=== PATIENT | female | born 1990 | race Caucasian/White ===

== ENCOUNTER 2019-09-02 08:37 | Emergency (ER) | payer OTHER ==
[~2019-09-02] VITALS: Ht 170.2 cm; Wt 76.7 kg
[2019-09-02 08:53] VITALS: Ht 170.2 cm; Wt 76.7 kg
[2019-09-02 09:56] LABS: BASOPHIL % 0.1 % (0-2); PLATELET COUNT 225 x10^3mcL (130-400); RED CELL DISTRIBUTION WIDTH 12.6 % (11.5-14.5)
[2019-09-02 10:12] LABS: CALCIUM 8.8 mg/dL (8.5-10.1); CARBON DIOXIDE 25.6 mmol/L (21-32); CHLORIDE SERUM 107 mmol/L (98-107); CREATININE SERUM 0.6 mg/dL (0.6-1.0); GFR1 > 60 mL/min; GLUCOSE SERUM 99 mg/dL (74-106); SODIUM SERUM 141 mmol/L (136-145)
[2019-09-02 10:17] LABS: ALBUMIN 3.9 g/dL (3.4-5.0); ALKALINE PHOSPHATASE 68 U/L (46-116); ALT/SGPT 33 U/L (14-59); AST/SGOT 20 U/L (15-37); BILIRUBIN TOTAL 0.6 mg/dL (0.20-1.00); TOTAL PROTEIN, SERUM 7.8 g/dL (6.4-8.2)
[2019-09-02 11:57] VITALS: BP 111/66
== END 2019-09-02 11:57 | disposition home or self-care (01) ==
LOC: ED 08:37
PROVIDERS: Emergency Medicine
DX: R10.31 Right lower quadrant pain (principal); R11.10 Vomiting, unspecified; R39.15 Urgency of urination; F17.210 Nicotine dependence, cigarettes, uncomplicated
CPT/HCPCS: J1885; J2405; J7030; Q9967

== ENCOUNTER 2020-01-29 19:02 | Emergency (ER) | payer OTHER ==
[~2020-01-29] VITALS: Ht 167.6 cm; Wt 71.7 kg
[2020-01-29 19:22] VITALS: Ht 167.6 cm; Wt 71.7 kg
[2020-01-29 21:13] VITALS: BP 119/70
== END 2020-01-29 21:13 | disposition home or self-care (01) ==
LOC: ED 19:02
DX: S43.402A Unspecified sprain of left shoulder joint, initial encounter (principal); X58.XXXA Exposure to other specified factors, initial encounter; Y93.89 Activity, other specified; Y92.89 Other specified places as the place of occurrence of the external cause; Y99.8 Other external cause status
CPT/HCPCS: J1885; Q0092

== ENCOUNTER 2020-02-06 21:38 | Emergency (ER) | payer OTHER ==
[~2020-02-06] VITALS: Ht 167.6 cm; Wt 73.0 kg
[2020-02-06 21:55] VITALS: Ht 167.6 cm; Wt 73.0 kg
[2020-02-07 01:14] VITALS: BP 122/81
== END 2020-02-07 01:14 | disposition home or self-care (01) ==
LOC: ED 21:38
DX: S22.31XA Fracture of one rib, right side, initial encounter for closed fracture (principal); X58.XXXA Exposure to other specified factors, initial encounter; Y93.89 Activity, other specified; Y92.89 Other specified places as the place of occurrence of the external cause; Y99.8 Other external cause status
CPT/HCPCS: 72072; 94150

== ENCOUNTER 2020-02-07 21:24 | Emergency (ER) | payer OTHER ==
[~2020-02-07] VITALS: Ht 167.6 cm; Wt 71.7 kg
[2020-02-07 21:36] VITALS: Ht 167.6 cm; Wt 71.7 kg
[2020-02-07 22:58] VITALS: BP 112/72
== END 2020-02-07 22:58 | disposition home or self-care (01) ==
LOC: ED 21:24
DX: S22.31XA Fracture of one rib, right side, initial encounter for closed fracture (principal); M54.9 Dorsalgia, unspecified; X58.XXXA Exposure to other specified factors, initial encounter; Y93.89 Activity, other specified; Y92.89 Other specified places as the place of occurrence of the external cause; Y99.8 Other external cause status
CPT/HCPCS: J1885; Q0162

== ENCOUNTER 2020-05-06 19:18 | Emergency (ER) | payer OTHER ==
[~2020-05-06] VITALS: Ht 170.2 cm; Wt 71.2 kg
[2020-05-06 19:49] VITALS: Ht 170.2 cm; Wt 71.2 kg
[2020-05-06 21:34] VITALS: BP 121/73
== END 2020-05-06 21:34 | disposition home or self-care (01) ==
LOC: ED 19:18
DX: S61.305A Unspecified open wound of left ring finger with damage to nail, initial encounter (principal); Y04.8XXA Assault by other bodily force, initial encounter; Y93.89 Activity, other specified; Y92.89 Other specified places as the place of occurrence of the external cause; Y99.8 Other external cause status
CPT/HCPCS: 90715; J1885